=== PATIENT | female | born 1990 | race Caucasian/White ===

== ENCOUNTER 2016-11-28 15:40 | Emergency (ER) | payer SELFPAY ==
[2016-11-28 15:45] VITALS: BP 150/98; PULSE 82; TEMP 97.9; BMI 24.0
[2016-11-28] MEDS ORDERED: KETOROLAC TROMETHAMINE 60 MG/2 ML VIAL IM ONE (16:56)
--- NOTE | 2016-11-28 17:07 | PDOC ---
History of Present Illness - General Chief Complaint: Psychiatric Stated Complaint: CHEST/SHOULDER PAIN/anxiety Time Seen by Provider: 11/28/16 16:05 History Source: Patient Exam Limitations: No Limitations - History of Present Illness Initial Comments: 11/28/16 16:34 26-year-old female presents to the ED with complaints of increased anxiety since having an argument this morning causing her to feel overwhelmed and unable to focus up-to-date. Patient states was driving when she developed left- sided chest tightness and soreness worsened with movement and palpation. Patient denies palpitations, shortness of breath, dizziness, nausea or diaphoresis. Patient denies medical history except for anxiety and denies depression. Patient states in the past has used distraction methods but states her symptoms were too severe so decided come to the ER. Patient also states has exercised in the past but has not gone in the past month due to increased stressors. Timing/Duration: other (this morning) Severity: moderate Associated Symptoms: reports: chest pain Beta Nabil Given by EMS(Core Measure): No Beta Nabil Taken at Home(Core Measure): No Beta Nabil Not Indicated at this Time(Core Measure): No Past History - Travel Traveled outside of the country in the last 30 days: No Close contact w/someone who was outside of country & ill: No - Past Medical History Allergies/Adverse Reactions: Allergies Allergy/AdvReac Type Severity Reaction Status Date / Time doxycycline calcium Allergy Verified 11/28/16 15:45 [From Vibramycin] doxycycline hyclate Allergy Verified 11/28/16 15:45 [From Vibramycin] doxycycline monohydrate Allergy Verified 11/28/16 15:45 [From Vibramycin] Home Medications: Ambulatory Orders NK [No Known Home Medication] 11/28/16 Psychiatric Problems: Yes (Anxiety) - Reproductive History LMP Normal: Yes Is Patient Now?: No (#): 1 Para: 0 Polycystic Ovaries: Yes Therapeutic (s) & number: No Spontaneous : 1 - Immunization History Immunization Up to Date: Yes - Psycho/Social/Smoking Cessation Hx Suicidal Ideation: No Smoking History: Never smoked Have you smoked in the past 12 months: No Information on smoking cessation initiated: No Hx Alcohol Use: No Drug/Substance Use Hx: No Substance Use Type: None Patient Lives Alone: Yes Review of Systems - Review of Systems Able to Perform ROS?: Yes Constitutional: No: Symptoms Reported HEENTM: No: Symptoms Reported Respiratory: No: Symptoms reported Cardiac (ROS): Yes: Chest Pain ABD/GI: No: Symptoms Reported Musculoskeletal: Yes: Muscle Pain (left chest) Integumentary: No: Symptoms Reported Neurological: No: Symptoms reported Psychiatric: Yes: Anxiety, Stressors, Sleep Pattern Change, Change in Appetite. No: Depression Endocrine: No: Symptoms Reported Hematologic/Lymphatic: No: Symptoms Reported *Physical Exam - Vital Signs Last Vital Signs Temp Pulse Resp BP Pulse Ox 97.9 F 82 18 150/98 99 11/28/16 15:42 11/28/16 15:42 11/28/16 15:42 11/28/16 15:42 11/28/16 15:42 - Physical Exam General Appearance: Yes: Nourished, Appropriately Dressed. No: Apparent Distress HEENT: positive: Pharynx Normal. negative: Pale Conjunctivae Neck: positive: Normal Thyroid, Supple Respiratory/Chest: positive: Chest Tender (left chest ), Lungs Clear. negative : Normal Breath Sounds, Respiratory Distress Cardiovascular: positive: Regular Rhythm, Regular Rate. negative: Murmur Gastrointestinal/Abdominal: positive: Soft. negative: Tenderness Extremity: positive: Normal Capillary Refill Integumentary: positive: Normal Color, Warm, Moist Neurologic: positive: Motor Strength 5/5. negative: Normal Mood/Affect (mildly anxious and crying) Heart Score/ECG Review - History History: Slightly suspicious - Electrocardiogram EKG: Normal - Age Age: </= 45 - Risk Factors Based on the list above the patient has:: No risk factors known - ECG Intrepretation Rhythm: Regular Rhythm (rate 84 normal sinus rhythm. No acute findings.) Medical Decision Making - Medical Decision Making 11/28/16 16:39 Patient history of anxiety and recent increase in stressors complaining of left sided chest achiness and anxiety. Patient examined reproducible pain and EKG was otherwise normal. Patient ordered for Toradol and will reevaluate shortly. 11/28/16 17:40 Patient states feeling much better and wants to go home. Patient be discharged home with recommendations to take 975 of Tylenol apply heat to the area and massage. *DC/Admit/Observation/Transfer Diagnosis at time of Disposition: Acute chest wall pain, Anxiety - Discharge Dispostion Disposition: HOME Condition at time of disposition: Improved - Referrals Referrals: STAFF,NOT ON [Primary Care Provider] - - Patient Instructions Printed Discharge Instructions: DI for Musculoskeletal Pain, DI for Anxiety -- Adult Additional Instructions: I recommend taking 975 mg of Tylenol every 8 hours for discomfort and apply heat to the affected area , and massage as needed. Please also utilize distractors to decrease stress and anxiety.
[2016-11-28] MEDS ORDERED: KETOROLAC TROMETHAMINE 60 MG/2 ML VIAL ONE (17:13)
--- NOTE | 2016-12-03 16:36 | EKG ---
Test Reason : Blood Pressure : / mmHG Vent. Rate : 084 BPM Atrial Rate : 084 BPM P-R Int : 148 ms QRS Dur : 084 ms QT Int : 376 ms P-R-T Axes : 066 072 058 degrees QTc Int : 444 ms NORMAL SINUS RHYTHM NORMAL ECG NO PREVIOUS ECGS AVAILABLE Confirmed by JUANJOSE CHURCH, BRYNN ([id number]) on 12/03/2016 4:35:55 PM Referred By: Confirmed By:BRYNN SOW MD
== END 2016-11-28 18:09 | disposition home or self-care (01) ==
LOC: JER 15:40
PROC: 3E0233Z Introduction of Anti-inflammatory into Muscle, Percutaneous Approach (ICD-10-PCS; principal; 2016-11-28)
DX: R07.89 Other chest pain (principal); F41.9 Anxiety disorder, unspecified
CPT/HCPCS: 93005; 93010; 99282-25